=== PATIENT | male | born 1990 | race American Indian/Alaskan Native ===

== ENCOUNTER 2017-12-15 22:17 | Emergency (ER) | payer MEDICAID ==
[2017-12-15] MEDS ORDERED: PROVENTIL IH ONE (22:26)
[2017-12-15] MEDS ORDERED: DUONEB *Not for PRN Use IH ONE (22:26)
--- NOTE | 2017-12-15 22:38 | Emergency Department Report ---
ED Psych HPI - General Stated Complaint: MH EVALUATION Time Seen by Provider: 12/15/17 22:31 Source: family, EMS Mode of arrival: Stretcher Limitations: No Limitations - History of Present Illness Initial Comments: Mr. Jean is a 27 yo male with hx of depression, PTSD ?bipolar affective disorder. Has depression. "saw visions". Not currently under the care of psychiatrist. Not taking psychiatric medications. MD Complaint: feels depressed -: Gradual, days(s) (several) Associated Psychiatric Symptoms: depression History of same: Yes Quality: constant Improves With: none Worsens With: none Context: not taking psychiatric - Related Data Allergies Allergy/AdvReac Type Severity Reaction Status Date / Time No Known Allergies Allergy Unverified 12/15/17 22:54 ED Review of Systems ROS: Stated complaint: MH EVALUATION Other details as noted in HPI Comment: All other systems reviewed and negative Constitutional: denies: fever, malaise Respiratory: denies: cough Cardiovascular: denies: chest pain ED Physical Exam - General General appearance: alert, in no apparent distress - Head Head exam: Present: atraumatic, normocephalic - Eye Eye exam: Present: normal appearance - ENT ENT exam: Present: mucous membranes moist - Neck Neck exam: Present: normal inspection - Respiratory Respiratory exam: Present: normal lung sounds bilaterally. Absent: respiratory distress, wheezes, rales, rhonchi - Cardiovascular Cardiovascular Exam: Present: regular rate, normal rhythm, normal heart sounds. Absent: bradycardia, tachycardia, systolic murmur, diastolic murmur, rubs, gallop - GI/Abdominal GI/Abdominal exam: Present: soft, normal bowel sounds. Absent: distended, tenderness, guarding, rebound - Rectal Rectal exam: Present: deferred - Extremities Exam Extremities exam: Present: normal inspection - Back Exam Back exam: Present: normal inspection - Neurological Exam Neurological exam: Present: alert, oriented X3 - Psychiatric Psychiatric exam: Present: depressed, flat affect - Skin Skin exam: Present: warm, dry, intact, normal color. Absent: rash ED Course Vital Signs 12/15/17 22:34 Pulse Rate 71 Respiratory 16 Rate Blood Pressure 124/66 O2 Sat by Pulse 100 Oximetry ED Medical Decision Making - Lab Data Result diagrams: 12/15/17 23:11 12/15/17 23:11 Vital Signs - 24 hr 07/05/18 22:34 Pulse Rate 71 Respiratory 16 Rate Blood Pressure 124/66 O2 Sat by Pulse 100 Oximetry - Medical Decision Making Mr. Jean informed our mental health repairer and checker that he has voices telling him to kill himself. He has had a previous suicide attempt. He is medically clear for psychiatric care. Currently no medical condition exists which needs further stabilization. I have reviewed the labs ordered. He is placed on 1013 involuntary hold with appropriate precautions. Awaiting transfer to inpatient psychiatric facility. Critical care attestation.: If time is entered above; I have spent that time in minutes in the direct care of this critically ill patient, excluding procedure time. ED Disposition Clinical Impression: Auditory hallucinations, Suicidal ideation Disposition: [id number]/TX-70 ANOTHER TYPE HLTHCARE Is pt being admited?: No Does the pt Need Aspirin: No Condition: Stable
[2017-12-15 23:24] LABS: Basophils # (Auto) 0.1 K/mm3 (0.0-0.1); Eosinophils # (Auto) 0.1 K/mm3 (0.0-0.4); Eosinophils % (Auto) 1.4 % (0.0-4.3); Hematocrit 42.6 % (35.5-45.6); Hemoglobin 14.1 gm/dl (11.8-15.2); Lymphocytes # (Auto) 2.7 K/mm3 (1.2-5.4); Lymphocytes % (Auto) 47.9 % (13.4-35.0); Mean Corpuscular HGB Conc 33 % (32-34); Mean Corpuscular Hemoglobin 28 pg (28-32); Mean Corpuscular Volume 86 fl (84-94); Monocytes # (Auto) 0.4 K/mm3 (0.0-0.8); Monocytes % (Auto) 7.1 % (0.0-7.3); Platelet Count 227 K/mm3 (140-440); Red Blood Count 4.98 M/mm3 (3.65-5.03); Red Cell Distribution Width 14.5 % (13.2-15.2)
[2017-12-15 23:38] LABS: BUN/Creatinine Ratio 12; Blood Urea Nitrogen 11 mg/dL (9-20); Calcium 9.1 mg/dL (8.4-10.2); Hemolysis Index 10
[2017-12-16 00:54] LABS: Bilirubin,Urine NEG (Negative); Blood,Urine NEG (Negative); Color,Urine Yellow (Yellow); Mucus,Urine 3+ /HPF
[2017-12-16 00:58] LABS: Amphetamine Screen,Urine PRESUMPTIVE NEGATIVE; Benzodiazepines Screen,Urine PRESUMPTIVE NEGATIVE; Cocaine Screen,Urine PRESUMPTIVE NEGATIVE; Methadone Screen,Urine PRESUMPTIVE NEGATIVE; Opiate Screen,Urine PRESUMPTIVE NEGATIVE
[2017-12-16 01:11] LABS: Cannabinoid Screen,Urine PRESUMPTIVE POSITIVE
--- NOTE | 2017-12-16 13:50 | Consultation ---
History of Present Illness - Reason for Consult Consult date: 12/16/17 Reason for consult: Mental Health Evaluation Requesting physician: AMELIA PERRIN - Chief Complaint Chief complaint: "I am afraid" - History of Present Psychiatric Illness 27 y.o. Aa male presenting to the ER for depression and acute psychosis. Today the patient is calm, but depressed during the assessment. He stated being afraid. He could not explain why he is afraid. He stated that he wanted to speak with a psychologist to help him "feel better" per the patient. He did acknowledge several inpatient settings, but could not ID medications he has taken in the past when asked. He stated that voices are telling him to harm himself. He stated several suicide attempts in the past. He would not confirm or deny SI's, but denies HI's and VH's. He admitted to erratic sleep, but denies a poor appetite. He denies recreational drug use, but positive for marijuana. He denies alcohol consumption (etoh). Medications and Allergies Allergies Allergy/AdvReac Type Severity Reaction Status Date / Time No Known Allergies Allergy Unverified 12/15/17 22:54 Past psychiatric history - Past Medical History Past Medical History: No medical history Past Surgical History: No surgical history - past Psychiatric treatment and history psychiatric treatment history: Several inpatient psy settings. He cannot confirm or deny a fam psy hx. - Social History Social history: lives with family Mental Status Exam - Vital signs Last Vital Signs Temp Pulse 71 12/15/17 22:34 Resp 20 12/16/17 10:54 BP 124/66 12/15/17 22:34 Pulse Ox 95 12/16/17 10:54 - Exam Narrative exam: MSE: Appearance: calm Behavior: regular eye contact Speech: regular rate and tone Mood: "depressed" Affect: congruent to mood Thought Process: circumstantial, hyper gnosticism Thought Content: denies HI's and VH's, he cannot confirm or deny SI's Motor Activity: sitting up in bed Cognition: A/O x 3 Insight: poor Judgment: poor Results Result Diagrams: 12/15/17 23:11 12/15/17 23:11 Abnormal lab results 12/15/17 12/15/17 12/15/17 Range/Units 23:08 23:11 23:11 Lymph % (Auto) (13.4-35.0) % Potassium (3.6-5.0) mmol/L Glucose (75-100) mg/dL Ur Specific [place] 1.033 H (1.003-1.030) Salicylates < 0.3 L (2.8-20.0) mg/dL Acetaminophen < 5.0 L (10.0-30.0) ug/mL 12/15/17 12/15/17 Range/Units 23:11 23:11 Lymph % (Auto) 47.9 H (13.4-35.0) % Potassium 3.5 L (3.6-5.0) mmol/L Glucose 105 H (75-100) mg/dL Ur Specific [place] (1.003-1.030) Salicylates (2.8-20.0) mg/dL Acetaminophen (10.0-30.0) ug/mL All other labs normal. Assessment and Plan Assessment and plan: Impression: Unspecified Mood DO with psy features. Cannabis Use DO. Today the patient is calm, but depressed during the assessment. DDx: R/O Bipolar DO with psychosis, R/O Substance Induced Mood DO, R/O Schizoaffective DO Recommendation/Plan: Continue 1013 with placement to [facility] today.
[2017-12-16 14:33] VITALS: BP 146/81
[2017-12-16] MEDS ORDERED: NACL 0.9% 1000 ML 1,000 ML ONE (15:08)
== END 2017-12-16 14:00 ==
LOC: EEVIPCON 22:17 → ED 22:17
DX: F31.9 Bipolar disorder, unspecified (principal)
CPT/HCPCS: 36415; 80048; 80307; 81001; 85025; 99285; G0480; J7030; 80320

== ENCOUNTER 2019-01-06 23:27 | Emergency (ER) | payer MEDICAID ==
[2019-01-07 00:07] LABS: Bacteria,Urine 1+ /HPF (Negative); Bilirubin,Urine NEG (Negative); Blood,Urine NEG (Negative); Color,Urine Yellow (Yellow); Mucus,Urine 2+ /HPF; Protein,Urine <15 mg/dL mg/dL (Negative); Urobilinogen,Urine < 2.0 mg/dL (<2.0)
[2019-01-07 00:27] LABS: Hematocrit 42.6 % (35.5-45.6); Hemoglobin 14.2 gm/dl (11.8-15.2); Mean Corpuscular HGB Conc 33 % (32-34); Mean Corpuscular Volume 89 fl (84-94); Platelet Count 214 K/mm3 (140-440); Red Blood Count 4.81 M/mm3 (3.65-5.03); Red Cell Distribution Width 14.9 % (13.2-15.2)
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
[2019-01-07 01:08] LABS: BUN/Creatinine Ratio 10; Blood Urea Nitrogen 11 mg/dL (9-20); Calcium 9.2 mg/dL (8.4-10.2); Hemolysis Index 4
[2019-01-07 01:24] LABS: Alanine Aminotransferase 69 units/L (7-56); Albumin 4.2 g/dL (3.9-5)
[2019-01-07 01:42] VITALS: BP 128/91
[2019-01-07 03:49] LABS: Basophils % (Manual) 0 % (0.0-1.8); Total Cells Counted 100
[2019-01-07 03:50] LABS: Anisocytosis 1+; Platelet Estimate Consistent w Auto
== END 2019-01-07 01:55 | disposition home or self-care (01) ==
LOC: ED 23:27
DX: N39.0 Urinary tract infection, site not specified (principal); R74.8 Abnormal levels of other serum enzymes; I10 Essential (primary) hypertension; F32.9 Major depressive disorder, single episode, unspecified; F17.200 Nicotine dependence, unspecified, uncomplicated; Z79.899 Other long term (current) drug therapy
CPT/HCPCS: 36415; 80053; 81001; 85007; 85025; 87086